=== PATIENT | male | born 1995 | race Two or more races ===

== ENCOUNTER 2017-07-06 13:42 | Emergency (ER) | payer MEDICAID, OTHER ==
[~2017-07-06] VITALS: Ht 167.6 cm; Wt 120.2 kg
[2017-07-06 13:42] VITALS: BP 133/80
[~2017-07-06 13:42] MED LIST: ETAN25DI; MESA250C2; METH2.5T
--- NOTE | 2017-07-06 14:05 | NUR ---
BIB MOM C/O COUGH X 2 WEEKS, FINISHED THE Z PACK YESTERDAY, COUGH IS GETTING WORSE ACCORDING TO MOM. A/OX 4. BREATHING EVEN AND UNLABORED. NO SOB. VITALS STABLE. SAFETY AND COMFORT MEASURES IN PLACE. AWAITING MD ORDERS.
== END 2017-07-06 14:56 | disposition home or self-care (01) ==
LOC: ER 13:46
DX: R05 Cough (principal); K50.90 Crohn's disease, unspecified, without complications; M47.9 Spondylosis, unspecified; F79 Unspecified intellectual disabilities; M08.00 Unspecified juvenile rheumatoid arthritis of unspecified site
CPT/HCPCS: 71010; 99283; A4606; Z7610

== ENCOUNTER → 2018-02-24 | Emergency (ER) | payer OTHER ==
[~2018-02-24] VITALS: Ht 172.7 cm; Wt 104.3 kg
[~2018-02-24] MED LIST changes: +CLINDAMYCIN 900 MG in IV D5W 50 ML IV ONE; +CLINDAMYCIN 900 MG/6 ML VIAL ONE; +IV NS 0.9% 1,000 ML BAG IV ONE; +ONDANSETRON HCL/PF 4 MG/2 ML VIAL IV ONE; +ONDANSETRON HCL/PF 4 MG/2 ML VIAL ONE; +diphenhydrAMINE HCL 50 MG/ML VIAL IV ONE; +diphenhydrAMINE HCL 50 MG/ML VIAL ONE
--- NOTE | 2018-02-24 17:18 | NUR ---
PT BIB FAMILY. C/C OF LEFT LOWER LEG REDNESS AND SWELLING X2 DAYS. PT AMBULATORY TO HOSPITAL BED WITH STABLE GAIT. AA/O X4. VSS. STABLE CONDITION. NAD. MD AT BEDSIDE FOR EVAL . AWAITING MD ORDERS.
--- NOTE | 2018-02-24 20:27 | NUR ---
ULTRASOUND AT BEDSIDE
[2018-02-24 20:29] LABS: BASOPHILS % (AUTO) 0.4 % (0.0-2.0); EOSINOPHILS % (AUTO) 0.9 % (0.0-6.0); HEMATOCRIT 40 % (39-51); HEMOGLOBIN 13.7 g/dL (13.5-17.5); LYMPHOCYTES # (AUTO) 1.1 /CMM (0.8-4.8); MEAN CORPUSCULAR HEMOGLOBIN 29 PG (26.0-33.0); MEAN CORPUSCULAR HGB CONC 34 g/dl (31.0-36.0); MEAN CORPUSCULAR VOLUME 85 fL (80-96); MONOCYTES # (AUTO) 0.5 /CMM (0.1-1.30); MONOCYTES % (AUTO) 8.7 % (2.0-12.0); NEUTROPHILS # (AUTO) 4.1 /CMM (1.8-8.9); PLATELET COUNT (AUTO) 182 /CMM (150-450); RED BLOOD CELL COUNT(AUTO) 4.78 MIL/uL (4.5-6.0); WHITE BLOOD COUNT (AUTO) 5.8 K/uL (4.3-11.0)
[2018-02-24 20:39] LABS: CALCIUM, SERUM 9.2 mg/dL (8.5-10.1); CREATININE 0.5 mg/dL (0.6-1.3); POTASSIUM 3.8 mmol/L (3.5-5.1)
[2018-02-24 20:45] LABS: BILIRUBIN,DIRECT 0.1 mg/dL (0.0-0.2); BILIRUBIN,TOTAL 0.5 mg/dL (0.2-1.0)
--- NOTE | 2018-02-24 22:15 | NUR ---
Patient discharged to home in stable condition. Written and verbal after care instructions given. Patient verbalizes understanding of instruction. PT AMBULATORY UPON D/C. POSITIVE PEDAL PULSES.
[2018-02-24 22:16] VITALS: BP 129/78
== END | disposition home or self-care (01) ==
LOC: ER 17:22
DX: L03.116 Cellulitis of left lower limb (principal); E30.0 Delayed puberty; K50.90 Crohn's disease, unspecified, without complications; E66.9 Obesity, unspecified; F89 Unspecified disorder of psychological development; F79 Unspecified intellectual disabilities; M08.00 Unspecified juvenile rheumatoid arthritis of unspecified site; M47.899 Other spondylosis, site unspecified; Z68.30 Body mass index [BMI] 30.0-30.9, adult
CPT/HCPCS: 36415; 80048; 80076; 85025; 93971; 96365; 96375; 99285; A4606; J1200; J2405; J3490 ×2; J7030; J7060 ×2; Z7610

== ENCOUNTER 2020-04-08 09:34 | Emergency (ER) | payer MEDICARE, OTHER ==
[~2020-04-08] VITALS: Ht 172.7 cm; Wt 148.3 kg
[~2020-04-08 09:34] MED LIST changes: -CLINDAMYCIN 900 MG in IV D5W 50 ML IV ONE; -CLINDAMYCIN 900 MG/6 ML VIAL ONE; -ETAN25DI; +ETAN25SY; -IV NS 0.9% 1,000 ML BAG IV ONE; -ONDANSETRON HCL/PF 4 MG/2 ML VIAL IV ONE; -ONDANSETRON HCL/PF 4 MG/2 ML VIAL ONE; -diphenhydrAMINE HCL 50 MG/ML VIAL IV ONE; -diphenhydrAMINE HCL 50 MG/ML VIAL ONE
[2020-04-08 09:47] VITALS: BP 159/133
== END 2020-04-08 11:05 | disposition home or self-care (01) ==
LOC: ER 09:34
DX: L05.91 Pilonidal cyst without abscess (principal); K59.00 Constipation, unspecified; E66.01 Morbid (severe) obesity due to excess calories; Z68.42 Body mass index [BMI] 45.0-49.9, adult; F79 Unspecified intellectual disabilities; Z79.899 Other long term (current) drug therapy
CPT/HCPCS: 99283; A6403

== ENCOUNTER 2020-05-30 10:27 | Emergency (ER) | payer MEDICARE, OTHER ==
[~2020-05-30] VITALS: Ht 175.3 cm; Wt 145.1 kg
[2020-05-30 10:34] VITALS: BP 140/91
--- NOTE | 2020-05-30 11:05 | NUR ---
TECH AT BEDSIDE FOR DUPLEX US.
--- NOTE | 2020-05-30 12:03 | NUR ---
Patient discharged to home in stable condition. Written and verbal after care instructions given. Patient verbalizes understanding of instruction.
== END 2020-05-30 12:03 | disposition home or self-care (01) ==
LOC: ER 10:31
DX: L03.116 Cellulitis of left lower limb (principal); Z88.6 Allergy status to analgesic agent; Z79.899 Other long term (current) drug therapy
CPT/HCPCS: 93971-TC

== ENCOUNTER 2021-03-29 11:57 | Emergency (ER) | payer MEDICARE, OTHER ==
[~2021-03-29] VITALS: Ht 172.7 cm; Wt 147.4 kg
--- NOTE | 2021-03-29 12:12 | NUR ---
PT BIB MOTHER TO ER BED 10, PER REPORT HERE FOR BLE SWELLING WORST TO THE L SIDE X 4 DAYS S/P COMING BACK FROM [place] ON A 15 HOUR FLIGHT. NO SOB ENDORSED BY MOTHER. STABLE VITALS. BARBARA MAK.
--- NOTE | 2021-03-29 12:14 | NUR ---
DR TINOCO AT BEDSIDE FOR EVAL.
[2021-03-29 12:39] LABS: BASOPHILS # (AUTO) 0.1 K/uL (0.0-0.2); BASOPHILS % (AUTO) 1.1 % (0.0-2.0); EOSINOPHILS % (AUTO) 2.2 % (0.0-6.0); HEMATOCRIT 40 % (39-51); HEMOGLOBIN 13.1 g/dL (13.5-17.5); LYMPHOCYTES # (AUTO) 1.8 K/uL (0.8-4.8); LYMPHOCYTES % (AUTO) 27.2 % (20.0-44.0); MEAN CORPUSCULAR HGB CONC 33 g/dl (31.0-36.0); MEAN CORPUSCULAR VOLUME 86 fL (80-96); MONOCYTES # (AUTO) 0.4 K/uL (0.1-1.30); MONOCYTES % (AUTO) 6.1 % (2.0-12.0); NEUTROPHILS # (AUTO) 4.3 K/uL (1.8-8.9); NEUTROPHILS % (AUTO) 63.4 % (43.0-81.0); PLATELET COUNT (AUTO) 191 K/uL (150-450); RED BLOOD CELL COUNT(AUTO) 4.61 MIL/uL (4.5-6.0); WHITE BLOOD COUNT (AUTO) 6.8 K/uL (4.3-11.0)
--- NOTE | 2021-03-29 12:40 | NUR ---
UNABLE TO PROVIDE URINE SAMPLE AT THIS TIME. URINAL PROVIDED.
[2021-03-29 12:47] LABS: CALCIUM, SERUM 8.7 mg/dL (8.5-10.1); CARBON DIOXIDE 24 mmol/L (21-32); CHLORIDE 102 mmol/L (98-107); CREATININE 0.5 mg/dL (0.6-1.3); GLUCOSE 107 mg/dL (74-106); POTASSIUM 3.9 mmol/L (3.5-5.1); SODIUM SERUM 137 mmol/L (136-145); UREA NITROGEN, BLOOD 10 mg/dL (7-18)
--- NOTE | 2021-03-29 12:49 | NUR ---
U/S TECH AT BEDSIDE FOR BLE DUPLEX ULTRASOUND.
[2021-03-29 12:52] LABS: ALANINE AMINOTRANSFERASE 46 U/L (12-78); ALBUMIN 3.5 g/dL (3.4-5.0); ALKALINE PHOSPHATASE 96 U/L (46-116); ASPARTATE AMINOTRANSFERASE 29 U/L (15-37); BILIRUBIN,DIRECT 0.1 mg/dL (0.0-0.2); BILIRUBIN,TOTAL 0.2 mg/dL (0.2-1.0); TOTAL PROTEIN, SERUM 7.4 g/dL (6.4-8.2)
[2021-03-29 13:18] LABS: BILIRUBIN,URINE Negative (NEGATIVE); COLOR,URINE YELLOW (YELLOW); LEUKOCYTE ESTERASE ,URINE Negative (NEGATIVE); NITRITE, URINE Negative (NEGATIVE); PROTEIN,URINE Negative (NEGATIVE); UGLUCOSE Negative (NEGATIVE)
[2021-03-29 13:30] LABS: BACTERIA,URINE Rare /HPF (None Seen); SQUAMOUS EPITHELIAL CELL,UR 0-2 /HPF (None Seen); WBC,URINE 0-2 /HPF (0-3)
--- NOTE | 2021-03-29 13:30 | NUR ---
Patient discharged to home in stable condition. Written and verbal after care instructions given. Patient and Mother verbalizes understanding of instruction.
[2021-03-29 13:32] VITALS: BP 128/84
== END 2021-03-29 13:33 | disposition home or self-care (01) ==
LOC: ER 12:02
DX: R60.0 Localized edema (principal); F79 Unspecified intellectual disabilities; Z88.6 Allergy status to analgesic agent; Z79.899 Other long term (current) drug therapy
CPT/HCPCS: 36415; 71045-TC; 80048-TC; 80076-TC; 81001; 84484-TC; 85025-TC; 93970-TC

== ENCOUNTER 2021-05-18 14:57 | Emergency (ER) | payer MEDICARE, OTHER ==
[~2021-05-18] VITALS: Ht 172.7 cm; Wt 136.1 kg
[2021-05-18 15:12] VITALS: BP 159/97
[2021-05-18] MEDS ORDERED: AZIT500T PO (15:48)
--- NOTE | 2021-05-18 15:53 | NUR ---
PATIENT TO TREAT AND RELAESE FOR EAR PAIN L SIDE.VITAL SIGNS STABLE.SEEN BY MD.PRESCRIPTION GIVEN .READY FOR DISCHARGE.
[2021-05-18] MEDS ORDERED: IBUP-1957 PO (16:01)
--- NOTE | 2021-05-18 16:01 | NUR ---
Patient discharged to home in stable condition. Written and verbal after care instructions given. Patient verbalizes understanding of instruction.
== END 2021-05-18 16:00 | disposition home or self-care (01) ==
LOC: ER 14:59
DX: H66.92 Otitis media, unspecified, left ear (principal); Z88.6 Allergy status to analgesic agent; Z79.899 Other long term (current) drug therapy

== ENCOUNTER 2024-12-14 07:32 | Emergency (ER) | payer MEDICARE, OTHER ==
[~2024-12-14] VITALS: Ht 172.7 cm; Wt 77.1 kg
[~2024-12-14 07:32] MED LIST changes: +AZIT500T PO; +IBUP-1957 PO
[2024-12-14 07:40] VITALS: BP 156/89; TEMP 99; O2SAT 99
[2024-12-14] MEDS ORDERED: DOCU50LI PO (08:11)
== END 2024-12-14 08:27 | disposition home or self-care (01) ==
LOC: ER 07:45
DX: H61.22 Impacted cerumen, left ear (principal); Z79.1 Long term (current) use of non-steroidal anti-inflammatories (NSAID); Z86.69 Personal history of other diseases of the nervous system and sense organs; Z87.19 Personal history of other diseases of the digestive system; Z87.438 Personal history of other diseases of male genital organs; Z87.39 Personal history of other diseases of the musculoskeletal system and connective tissue; Z86.59 Personal history of other mental and behavioral disorders; Z88.8 Allergy status to other drugs, medicaments and biological substances